=== PATIENT | female | born 1990 | race Caucasian/White ===

== ENCOUNTER 2016-09-16 14:07 | Emergency (ER) | payer MEDICAID ==
[2016-09-16 14:39] VITALS: BP 137/80
--- NOTE | 2016-09-16 15:17 | EDM.PDOC ---
ED HPI Skin/Rash - General Chief Complaint: Skin Complaint Stated Complaint: LUMP LEFT ARMPIT Time Seen by Provider: 09/16/16 14:45 Source: Reports: Patient History Limitations: Reports: No limitations - History of Present Illness INITIAL COMMENTS - FREE TEXT/NARRATIVE: 25-year-old female has had a chronic axillary cystic lesion on the left side for the last several months. She doesn't drive and today she happened to be in town so she came in to have it checked out as it is bothering her more the last couple days. She is worried she might have cancer. It is not warm, red, draining, she's otherwise been healthy. Timing: Reports: still present Location, Skin: Reports: axillary Severity: mild - Related Data Allergies Allergy/AdvReac Type Severity Reaction Status Date / Time Sulfa (Sulfonamide Allergy Swelling Verified 09/16/16 14:45 Antibiotics) Home Meds: Ambulatory Orders Medication Instructions Recorded Confirmed NK [No Known Home Meds] 09/16/16 09/16/16 Past Medical History Genitourinary History: Reports: Renal calculus Musculoskeletal History: Reports: Fracture Neurological History: Reports: Migraines - Past Surgical History HEENT Surgical History: Reports: Myringotomy w tube(s) Female Surgical History: Reports: Other (see below) Other Female Surgeries/Procedures: "surgery for kidney stone removal" Social & Family History - Tobacco Use Smoking Status *Q: Never Smoker - Recreational Drug Use Recreational Drug Use: No ED ROS GENERAL - Review of Systems Review Of Systems: See Below Constitutional: Denies: fever, chills HEENT: Reports: No symptoms Respiratory: Denies: shortness of breath GI/Abdominal: Denies: Nausea, Vomiting Skin: Reports: other (See HPI) ED EXAM, SKIN/RASH Exam: See Below Exam Limited By: No limitations General Appearance: alert, no apparent distress Respiratory/Chest: no respiratory distress Psychiatric: normal affect, normal mood Skin: Warm, Dry, Other (Patient does have a 2-3 cm cystic mass in the left axillary area which is mildly tender, not fluctuant red or warm) Course - Vital Signs Last Recorded V/S: Last Vital Signs Temp 99.3 F 09/16/16 14:44 Pulse 91 09/16/16 14:44 Resp 16 09/16/16 14:44 BP 137/80 09/16/16 14:44 Pulse Ox 97 09/16/16 14:44 - Orders/Labs/Meds Orders: Active Orders 24 hr Category Date Time Status Ready for Discharge [RC] PER UNIT ROUTINE Care 09/16/16 15:21 Active - Re-Assessments/Exams Free Text/Narrative Re-Assessment/Exam: 09/16/16 17:03 Explained to the patient that this is likely a sebaceous cyst which is chronic and intermittent. I reassured her it was extremely unlikely to be cancer. This was reassuring to her. She was interested in having it removed, Dr. Estrada was kind enough to come over and see the patient and discuss outpatient management. She is to follow with him in the clinic. Departure - Departure Time of Disposition: 15:56 Disposition: Home, Self-Care 01 Condition: good Clinical Impression: Sebaceous cyst of left axilla Instructions: Sebaceous Cyst Removal Referrals: Mino Estrada MD [Physician] - (raul 7-14 d ) Forms: ED Department Discharge Care Plan Goals: Recheck with Dr. Estrada as discussed.
--- NOTE | 2016-09-20 11:46 | CONS ---
DATE OF SERVICE: 09/16/2016 REFERRING PHYSICIAN: CONSULTING PHYSICIAN: Mino Estrada MD REASON FOR CONSULTATION: Left axilla pain. HISTORY OF PRESENT ILLNESS: This is a 25-year-old female who has had a longstanding history of left axillary pain associated with a cyst. The patient malignancy. She has not really had any other issues with that. She is not the best historian. The patient understands, but has a little bit of a learning deficit probably. PAST SURGICAL HISTORY: Some type of kidney stone removal. PAST MEDICAL HISTORY: Migraines. SOCIAL HISTORY: She is a nonsmoker. FAMILY HISTORY: Noncontributory. REVIEW OF SYSTEMS: GENERAL: The remainder of this is obtained from a combination of the chart and patient but apparently is not doing well. HEENT: No symptoms. RESPIRATORY: No shortness of breath. CARDIOVASCULAR: No chest pain. GASTROINTESTINAL: Noncontributory. SKIN: Noncontributory. PHYSICAL EXAMINATION: VITAL SIGNS: Temperature 99.3, blood pressure 137/80, pulse 91, respirations 16, oxygen saturation is 97% on room air. HEENT: Pupils are equal, round, and reactive to light. NECK: Supple, nontender. CARDIOVASCULAR: Regular rhythm and rate. RESPIRATORY: Lungs are clear to consultation bilaterally. ABDOMEN: Bowel sounds are positive. SKIN: Left axilla, there is a mild area of fluctuance, but no obvious cellulitis. LABORATORY RESULTS: No labs were reported. ASSESSMENT: Left axillary possible infection. PLAN: The patient will be treated with Augmentin. She is to return to clinic in 10-14 days for excision of this cystic lesion. We discussed risks, benefits, alternatives, and limitations including, but not limited to infection, bleeding, and other injuries, including profound scar formation. Mino Estrada MD /[id number]
== END 2016-09-16 16:00 | disposition home or self-care (01) ==
LOC: JP.ED 14:07
DX: L72.3 Sebaceous cyst (principal); Z88.2 Allergy status to sulfonamides
CPT/HCPCS: 99283

== ENCOUNTER 2020-10-05 12:42 | Emergency (ER) | payer MEDICAID ==
[2020-10-05] MEDS ORDERED: Sodium Chloride 0.9% 10 ML Syringe FLUSH PRN (13:01)
[2020-10-05] MEDS ORDERED: diphenhydrAMINE 50 MG/ML SDV IVPUSH ONE (13:01)
[2020-10-05] MEDS ORDERED: methylPREDNISolone Sodium Succinate 125 MG/2 ML SDV IVPUSH ONE (13:01)
[2020-10-05] MEDS ORDERED: Famotidine 20 MG/2 ML SDV IVPUSH ONE (13:01)
--- NOTE | 2020-10-05 13:22 | EDM.PDOC ---
ED HPI GENERAL MEDICAL PROBLEM - General Chief Complaint: Allergic Reaction Stated Complaint: ALLERGIC REACTION Time Seen by Provider: 10/05/20 13:01 Source of Information: Reports: Patient History Limitations: Reports: No Limitations - History of Present Illness INITIAL COMMENTS - FREE TEXT/NARRATIVE: Patient states that she was in [place] at [facility]--got a energy drink that has Elieser in it. Then they were headed to [place] to see her boyfriend when she started having red skin, itching and a lump in her throat. She states they googled and noted that [facility] was only 22 miles so they diverted and drove here to the ER. She denies any SOB/difficulty breathing, no wheezing or symptoms otherwise of concern besides skin reddness, itching, lump in throat. PMH--DM2, morbid obesity, anxiety Meds--metformin Med allergies--sulfa, ?-vicoden although reported not listed Tob--1ppd EtOH--occassional Drugs--denies Onset: Today, Sudden - Related Data Allergies Allergy/AdvReac Type Severity Reaction Status Date / Time elieser Allergy Hives Verified 10/05/20 13:49 papaya Allergy Hives Verified 10/05/20 13:49 Sulfa (Sulfonamide Allergy Swelling Verified 09/16/16 14:45 Antibiotics) Home Meds: Home Meds Levonorgestrel/Ethin.estradiol [Aviane-28 Tablet] 1 tab PO DAILY 10/05/20 [History] Omeprazole 20 mg PO DAILY 10/05/20 [History] Pramipexole [Mirapex] 1 tab PO DAILY 10/05/20 [History] Venlafaxine HCl [Venlafaxine ER] 75 mg PO DAILY 10/05/20 [History] metFORMIN HCl [Metformin HCl] 500 mg PO BID 10/05/20 [History] Past Medical History Genitourinary History: Reports: Renal Calculus Musculoskeletal History: Reports: Fracture Neurological History: Reports: Migraines - Past Surgical History HEENT Surgical History: Reports: Myringotomy w Tube(s) Female Surgical History: Reports: Other (See Below) ED ROS ALLERGIC REACTION - Review of Systems Review Of Systems: See Below Constitutional: Reports: No Symptoms HEENT: Reports: Throat Pain (lump sensation in throat) Respiratory: Reports: No Symptoms. Denies: Shortness of Breath, Wheezing, Cough Cardiovascular: Reports: No Symptoms Endocrine: Reports: No Symptoms GI/Abdominal: Reports: No Symptoms : Reports: No Symptoms Musculoskeletal: Reports: No Symptoms Skin: Reports: No Symptoms Neurological: Reports: No Symptoms Psychiatric: Reports: No Symptoms Hematologic/Lymphatic: Reports: No Symptoms Immunologic: Reports: No Symptoms ED EXAM GENERAL NO PERIP PULSE - Physical Exam Exam: See Below Exam Limited By: No Limitations General Appearance: Alert, Anxious (mild due to situation), Mild Distress, Obese Eye Exam: Bilateral Eye: EOMI, Normal Inspection, PERRL Ears: Normal External Exam Nose: Normal Inspection Throat/Mouth: Normal Inspection, Normal Oropharynx, Normal Voice, No Airway Compromise Head: Atraumatic, Normocephalic Neck: Normal Inspection, Supple, Non-Tender, Full Range of Motion Respiratory/Chest: No Respiratory Distress, Lungs Clear, Normal Breath Sounds, No Accessory Muscle Use. No: Respiratory Distress, Rhonchi, Wheezing, Stridor GI/Abdominal: Normal Bowel Sounds, Soft, Non-Tender (morbidly obese body habitus limits exam) (Female) Exam: Deferred Rectal (Female) Exam: Deferred Back Exam: Normal Inspection Extremities: Normal Range of Motion, No Pedal Edema, Normal Capillary Refill Neurological: Alert, Oriented, Normal Gait, No Motor/Sensory Deficits Psychiatric: Normal Affect, Normal Mood Skin Exam: Warm, Dry, Intact, Erythema (has noted erythema to face & arms--bright red; minimally on LE). No: No Rash Course - Vital Signs Text/Narrative:: 1400--patient recheck, noted to have marked decrease in reddness/rash/erythema--now only with flushed check appearance no longer having arm/legs or head/neck involvement. She also denied sensation of lump in her throat. d/w patient home care to include avoidance of "tropical" drinks as may contain papaya/elieser which she reports being allergic to. may consider benadryl & pepcid next 24 hours on a schedule. verbalized understanding/agreement with plan of care Last Recorded V/S: Last Vital Signs Temp 98.5 F 10/05/20 13:10 Pulse 111 H 10/05/20 13:10 Resp 16 10/05/20 13:37 BP 140/77 10/05/20 13:37 Pulse Ox 99 10/05/20 13:37 - Orders/Labs/Meds Orders: Active Orders 24 hr Category Date Time Status Sodium Chloride 0.9% [Saline Flush] Med 10/05/20 13:01 Active 10 ml FLUSH ASDIRECTED PRN Saline Lock Insert [OM.PC] Routine Oth 10/05/20 13:01 Ordered Medication Orders Sodium Chloride (Sodium Chloride 0.9% 10 Ml Syringe) 10 ml FLUSH ASDIRECTED PRN PRN Reason: Keep Vein Open Meds: Medications Generic Name Dose Route Start Last Admin Trade Name Freq PRN Reason Stop Dose Admin Sodium Chloride 10 ml 10/05/20 13:01 Sodium Chloride 0.9% 10 Ml Syringe FLUSH ASDIRECTED PRN Keep Vein Open Discontinued Medications Generic Name Dose Route Start Last Admin Trade Name Freq PRN Reason Stop Dose Admin Diphenhydramine HCl 50 mg 10/05/20 13:01 10/05/20 13:10 Diphenhydramine 50 Mg/Ml Sdv IVPUSH 10/05/20 13:02 50 mg ONETIME ONE Administration Famotidine 20 mg 10/05/20 13:01 10/05/20 13:10 Famotidine 20 Mg/2 Ml Sdv IVPUSH 10/05/20 13:02 20 mg ONETIME ONE Administration Methylprednisolone Sodium Succinate 125 mg 10/05/20 13:01 10/05/20 13:10 Methylprednisolone Sodium Succinate 125 Mg/2 Ml Sdv IVPUSH 10/05/20 13:02 125 mg ONETIME ONE Administration Departure - Departure Time of Disposition: 14:22 Disposition: Home, Self-Care 01 Condition: Good Clinical Impression: Allergic reaction to food, Food allergic skin reaction - Discharge Information *PRESCRIPTION DRUG MONITORING PROGRAM REVIEWED*: Not Applicable *COPY OF PRESCRIPTION DRUG MONITORING REPORT IN PATIENT [place]: Not Applicable Instructions: Food Allergy, [id number] Referrals: PCP,None [Primary Care Provider] - Forms: ED Department Discharge Additional Instructions: Avoid products that contain "TROPICAL" or "FRUIT TROPICAL MIX" as these may contain elieser or papaya You may consider using diphenhydramine (Benadryl) and famotadine (Pepcid) as the label reads from over the counter the next 24-48 hours to prevent further reaction from re-occuring Please note that your blood sugars may run a little higher the next 2-3 days due to having received steroids (Solu-Medrol) in the ER today--please watch your diet carefully regarding sweet, sugary foods or fruits/juices as well as noodles, bread, cereal, & rice type foods as these type of foods will also increase your blood sugar Follow up with your family doctor/primary care provider should you have any further questions or concerns Sepsis Event Note (ED) - Focused Exam Vital Signs: Vital Signs Temp Pulse Resp BP Pulse Ox 10/05/20 13:37 16 140/77 99 10/05/20 13:10 98.5 F 111 H 28 H 140/77 100 - My Orders Last 24 Hours: My Active Orders 10/05/20 13:01 Sodium Chloride 0.9% [Saline Flush] 10 ml FLUSH ASDIRECTED PRN Saline Lock Insert [OM.PC] Routine - Assessment/Plan Last 24 Hours: My Active Orders 10/05/20 13:01 Sodium Chloride 0.9% [Saline Flush] 10 ml FLUSH ASDIRECTED PRN Saline Lock Insert [OM.PC] Routine
[2020-10-05 13:37] VITALS: BP 140/77; PULSE 111
== END 2020-10-05 14:38 | disposition home or self-care (01) ==
LOC: JP.ED 12:42
DX: T78.1XXA Other adverse food reactions, not elsewhere classified, initial encounter (principal); E11.9 Type 2 diabetes mellitus without complications; F17.210 Nicotine dependence, cigarettes, uncomplicated; E66.01 Morbid (severe) obesity due to excess calories; Z68.44 Body mass index [BMI] 60.0-69.9, adult; Z91.018 Allergy to other foods; Z88.2 Allergy status to sulfonamides; Z79.84 Long term (current) use of oral hypoglycemic drugs
CPT/HCPCS: 96374; 96375; 99283; 99283-25; J1200; J2930; J3490